=== PATIENT | male | born 1965 | race Asian ===

== ENCOUNTER 2018-03-24 07:05 | Emergency (ER) | payer OTHER ==
[~2018-03-24] VITALS: Ht 167.6 cm; Wt 65.8 kg
--- NOTE | 2018-03-24 07:05 | NUR ---
BIB WHEELCHAIR TO ER BED 10
--- NOTE | 2018-03-24 07:08 | NUR ---
EKG PERFORMED AT BEDSIDE. NORMAL SINUS RHYTHM
--- NOTE | 2018-03-24 07:08 | NUR ---
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 RR are even and tachypneic. Skin is warm/dry/color appriopriate for ethnicity. Cap refill < 3 seconds to all [facility]. Pt is aox4 to person, place, situation, and time. Clear speech with full setences. Pt changed into gown and to cardiac, bp, pulse, and pulse ox monitoring. VSS. NSR on cardiac monitoring. er md nuñez aware of pt status. Will continue to monitor.
[2018-03-24 07:11] VITALS: BP 141/95
[2018-03-24] MEDS ORDERED: ASPIRIN 325 MG TAB PO ONE (07:40)
[2018-03-24] MEDS ORDERED: MORPHINE SULFATE 4 MG/ML SYR IVP ONE (07:40)
[2018-03-24] MEDS ORDERED: ONDANSETRON 4 MG/2 ML VIAL IVP ONE (07:40)
[2018-03-24] MEDS ORDERED: NITROGLYCERIN 0.4 MG TAB SL ONE (07:50)
[2018-03-24 08:02] LABS: BASOPHILS # (AUTO) 0.1 K/uL (0.00-0.22); BASOPHILS % (AUTO) 0.8 % (0.0-2.0); EOSINOPHILS # (AUTO) 0.3 K/uL (0-0.4); EOSINOPHILS % (AUTO) 2.4 % (0.0-4.0); HEMATOCRIT 48.4 % (36-52); HEMOGLOBIN 16.3 g/dL (12.0-18.0); LYMPHOCYTES # (AUTO) 4.7 K/uL (2.0-11.5); LYMPHOCYTES % (AUTO) 38.3 % (20.5-51.1); MEAN CORPUSCULAR HEMOGLOBIN 31 pg (27-31); MEAN CORPUSCULAR HGB CONC 34 g/dL (33-37); MONOCYTES # (AUTO) 1.1 K/uL (0.8-1.0); MONOCYTES % (AUTO) 8.5 % (1.7-9.3); NEUTROPHILS # (AUTO) 6.2 K/uL (1.8-7.7); PLATELET COUNT (AUTO) 243 K/uL (140-450); RED BLOOD CELL COUNT(AUTO) 5.31 MIL/uL (4.20-6.10); RED CELL DISTRIBUTION WIDTH 13.2 % (11.6-13.7); WHITE BLOOD COUNT (AUTO) 12.4 K/uL (4.8-10.8)
[2018-03-24 08:16] LABS: ANION GAP 12.1 (8-16); CARBON DIOXIDE 23.8 mmol/L (21-32); CREATININE 0.8 mg/dL (0.7-1.3); POTASSIUM 3.9 mmol/L (3.5-5.1)
[2018-03-24 08:19] LABS: PROTHROMBIN TIME 9.3 secs (10.8-13.4)
[2018-03-24 08:22] LABS: ALBUMIN 3.8 g/dL (3.4-5.0); TOTAL BILIRUBIN 0.5 mg/dL (0.0-1.0)
--- NOTE | 2018-03-24 08:30 | NUR ---
patient resting with eyes closed resting in [facility]. vss. nad. patient denies any chest pain at this time.
--- NOTE | 2018-03-24 10:11 | NUR ---
lab by bedside performing repeat troponin
[2018-03-24] MEDS ORDERED: ENOXAPARIN 80 MG/0.8 ML SYR SUBQ ONE (11:15)
--- NOTE | 2018-03-24 11:29 | NUR ---
patient remains denying any chest pain. no changes in patient's condition on arrival. medication as per er md nuñez order. vss. nad. preparing to transfer. will continue to monitor.
[2018-03-24 12:24] VITALS: BP 132/85
--- NOTE | 2018-03-24 12:25 | NUR ---
Patient to be transferred to [facility]. Is being transferred due to higher level of care. Receiving facility has accepting physician and available space. ER physician has signed transfer form. Patient or responsible alliance party has agreed to transfer and signed form. Patient belongings inventoried and will be sent with patient. Copy of nursing notes, lab reports, EKG, Physicians Orders and X-rays to be sent with patient. Report called to Claudia Maki RN at receiving facility. [facility] ambulance service has been called for transfer. ETA is 5 mins.
--- NOTE | 2018-03-24 12:25 | NUR ---
Note undone in EDM - 03/24/18 at 1248 by ANNELISE Patient to be transferred to [facility]. Is being transferred due to higher level of care. Receiving facility has accepting physician and available space. ER physician has signed transfer form. Patient or responsible constitution party has agreed to transfer and signed form. Patient belongings inventoried and will be sent with patient. Copy of nursing notes, lab reports, EKG, Physicians Orders and X-rays to be sent with patient. Report called to Claudia Maki RN at receiving facility. [facility] ambulance service has been called for transfer. ETA is 5 mins.
--- NOTE | 2018-03-24 12:32 | NUR ---
patient left er via [facility] code [facility]. vss. stable for transfer.
== END 2018-03-24 12:25 | disposition short-term general hospital (02) ==
LOC: MED 07:05
DX: I34.0 Nonrheumatic mitral (valve) insufficiency (principal); I10 Essential (primary) hypertension; F17.200 Nicotine dependence, unspecified, uncomplicated; Z85.9 Personal history of malignant neoplasm, unspecified; R94.31 Abnormal electrocardiogram [ECG] [EKG]
CPT/HCPCS: 36415; 71045; 80053; 83880; 84484; 85025; 85610; 85730; 93005; 96372; 96374; 96375; 99291; J1650; J2270; J2405

== ENCOUNTER 2022-05-25 07:25 | Emergency (ER) | payer OTHER ==
[~2022-05-25] VITALS: Ht 170.2 cm; Wt 63.5 kg
--- NOTE | 2022-05-25 07:27 | NUR ---
Pt ambulated to bed 11 with steady/even gait.
[2022-05-25 07:28] VITALS: BP 123/78
[2022-05-25] MEDS ORDERED: ASPIRIN 81 MG TAB.CHEW PO ONE (07:40)
--- NOTE | 2022-05-25 07:49 | NUR ---
57M presents to ED with c/o chest pain and SOB since last night. Pt reports constant, pressure like, 8/10 pain to substernal region, nonradiating, worsening when coughing. Pt denies SOB upon assessment, taking meds today. Pt denies n/v/d, and ABD pain. Pt placed in gown, bedside secured entrance monitor, bed at lowest position, side rails x1. Dr. Mena made aware upon arrival.
--- NOTE | 2022-05-25 08:08 | NUR ---
Flu and rosaile swab collected and walked to lab.
[2022-05-25] MEDS ORDERED: KETOROLAC 15 MG/ML VIAL IVP ONE (08:15)
[2022-05-25 08:16] LABS: BASOPHILS # (AUTO) 0.1 K/uL (0.00-0.22); BASOPHILS % (AUTO) 0.6 % (0.0-2.0); EOSINOPHILS # (AUTO) 0.5 K/uL (0-0.4); EOSINOPHILS % (AUTO) 4.1 % (0.0-4.0); HEMATOCRIT 37.8 % (36-52); HEMOGLOBIN 12.7 g/dL (12.0-18.0); LYMPHOCYTES # (AUTO) 2.7 K/uL (2.0-11.5); LYMPHOCYTES % (AUTO) 23.2 % (20.5-51.1); MEAN CORPUSCULAR HEMOGLOBIN 31 pg (27-31); MEAN CORPUSCULAR HGB CONC 34 g/dL (33-37); MEAN CORPUSCULAR VOLUME 93.2 fL (80-94); MONOCYTES # (AUTO) 0.6 K/uL (0.8-1.0); MONOCYTES % (AUTO) 5.5 % (1.7-9.3); NEUTROPHILS # (AUTO) 7.8 K/uL (1.8-7.7); NEUTROPHILS % (AUTO) 66.6 % (42.2-75.2); PLATELET COUNT (AUTO) 242 K/uL (140-450); RED BLOOD CELL COUNT(AUTO) 4.05 MIL/uL (4.20-6.10); RED CELL DISTRIBUTION WIDTH 13.9 % (11.6-13.7); WHITE BLOOD COUNT (AUTO) 11.7 K/uL (4.8-10.8)
[2022-05-25 08:39] LABS: APPEARANCE,URINE CLEAR (CLEAR); BILIRUBIN,URINE NEGATIVE (NEGATIVE); BLOOD, URINE TRACE-I (NEGATIVE); COLOR,URINE YELLOW (YELLOW); LEUKOCYTE ESTERASE ,URINE NEGATIVE (NEGATIVE); NITRITE, URINE NEGATIVE (NEGATIVE); UGLUCOSE TRACE (NEGATIVE)
[2022-05-25 09:29] LABS: RBC,URINE 0-5 /HPF (0-5); WBC,URINE 0-5 /HPF (0-5)
[2022-05-25 09:30] VITALS: BP 107/65
[2022-05-25 11:57] LABS: ANION GAP 11.8 (8-16); CARBON DIOXIDE 26.8 mmol/L (21-32); POTASSIUM 3.6 mmol/L (3.5-5.1)
[2022-05-25 11:58] LABS: CREATININE 0.9 mg/dL (0.6-1.3); TOTAL BILIRUBIN 0.3 mg/dL (0.0-1.0)
[2022-05-25 12:00] LABS: ALBUMIN 3.3 g/dL (3.4-5.0)
--- NOTE | 2022-05-25 12:13 | NUR ---
Patient discharged with v/s stable. Written and verbal after care instructions given and explained for Chest Wall Pain, Viral Illness. Patient verbalized understanding. Ambulatory with steady gait. All questions addressed prior to discharge. Advised to follow up with PMD.
== END 2022-05-25 12:13 | disposition home or self-care (01) ==
LOC: MED 07:25
DX: B34.9 Viral infection, unspecified (principal); Z20.822 Contact with and (suspected) exposure to COVID-19; R07.89 Other chest pain; I25.10 Atherosclerotic heart disease of native coronary artery without angina pectoris; E78.5 Hyperlipidemia, unspecified; Z90.49 Acquired absence of other specified parts of digestive tract
CPT/HCPCS: 36415; 71045; 80053; 81001; 83880; 84484; 85025; 87426; 87804; 93005; 96374; 99285; J1885